=== PATIENT | male | born 1950 | race African-American/Black ===

== ENCOUNTER 2021-07-18 06:16 | Day surgery (SDC) | payer MEDICARE, OTHER ==
[2021-07-18] VITALS (10 sets, daily range): BP systolic 115–146; BP diastolic 86–101; PULSE 95–106; TEMP 99.1
[~2021-07-18] VITALS: Ht 182.9 cm; Wt 64.8 kg
[2021-07-18] MEDS ORDERED: LIORESAL20 MG PO (06:37)
[2021-07-18] MEDS ORDERED: ZESTRIL 20MG TA20 MG PO (06:37)
[2021-07-18] MEDS ORDERED: NORVASC 5MG5 MG/TAB PO (06:38)
[2021-07-18] MEDS ORDERED: D3-5050000 IU PO (06:38)
[2021-07-18] MEDS ORDERED: NEURONTIN300 MG/CAP PO (06:39)
[2021-07-18] MEDS ORDERED: XARELTO10 MG PO (06:39)
[2021-07-18] MEDS ORDERED: ZYRTEC 10MG10 MG PO (06:40)
[2021-07-18] MEDS ORDERED: HUMALOG 75/2100 U/ML SQ (06:40)
[2021-07-18] MEDS ORDERED: FLOMAX 0.40.4 MG/CAP PO (06:41)
[2021-07-18] MEDS ORDERED: PLAVIX 75MG TAB75 MG PO (06:41)
[2021-07-18] MEDS ORDERED: COZAAR 50MG50 MG/TAB PO (06:42)
[2021-07-18] MEDS ORDERED: COREG 6.256.25 MG/TA PO (06:42)
[2021-07-18] MEDS ORDERED: CRESTOR20 MG PO (06:43)
[2021-07-18 07:00] LABS: MEAN CELL VOLUME 77 fl (80.0-100.0); MEAN CORPUSCULAR HGB CONC 31 g/dl (33.0-37.0); MEAN PLATELET VOLUME 9.9 fl (7.4-10.4); PLATELET COUNT 245 K/mm3 (130-400); RED BLOOD COUNT 3.98 M/mm3 (4.20-5.60); REDCELL DISTRIBUTION WIDTH-CV 16.9 % (11.5-14.5)
[2021-07-18 07:01] LABS: HEMATOCRIT 30.7 % (42.0-52.0); HEMOGLOBIN 9.5 g/dl (13.5-18.0); MEAN CORPUSCULAR HEMOGLOBIN 24 pg (27.0-31.0)
[2021-07-18 07:13] LABS: INR 1.2 (0.8-3.0); PROTHROMBIN TIME 13.7 SECONDS (9.7-12.8)
[2021-07-18 07:15] LABS: PARTIAL THROMBOPLASTIN TIME 33.3 SECONDS (26.0-37.0)
[2021-07-18 07:51] LABS: CALCIUM 9.3 mg/dL (8.4-10.2); CREATININE, serum 1.29 mg/dL (0.72-1.25)
--- NOTE | 2021-07-18 08:19 | NUR ---
SEE MERGE DOCUMENTATION FOR MEDICATION ADMINISTRATION AND INTR/POST PROCEDURE SEDATION ASSESSMENTS.
--- NOTE | 2021-07-18 09:00 | NUR ---
Report from Re [facility]. Transferred from [facility] by bed. Alert and oriented, denies pain and needs at this time. 12 cc air to right Tabnd, good pulses and cap refill < 3 secs noted. VSS.
--- NOTE | 2021-07-18 11:45 | NUR ---
Ambulated to bathroom with help from daughter. 12 cc air released from right Tband and dressing applied. INT discontinued intact.
--- NOTE | 2021-07-18 12:00 | NUR ---
Discharge instructions given. Transferred to private car by chris
== END 2021-07-18 12:00 | disposition home or self-care (01) ==
LOC: COL.CAR 06:16
PROVIDERS: Internal Medicine Interventional Cardiology
DX: I25.10 Atherosclerotic heart disease of native coronary artery without angina pectoris (principal); R94.39 Abnormal result of other cardiovascular function study; I48.0 Paroxysmal atrial fibrillation; I13.0 Hypertensive heart and chronic kidney disease with heart failure and stage 1 through stage 4 chronic kidney disease, or unspecified chronic kidney disease; I50.20 Unspecified systolic (congestive) heart failure; I73.9 Peripheral vascular disease, unspecified; D75.A Glucose-6-phosphate dehydrogenase (G6PD) deficiency without anemia; E78.5 Hyperlipidemia, unspecified; Z20.822 Contact with and (suspected) exposure to COVID-19; Z79.899 Other long term (current) drug therapy; Z79.02 Long term (current) use of antithrombotics/antiplatelets; Z95.810 Presence of automatic (implantable) cardiac defibrillator
CPT/HCPCS: C1769; J1644; J2250; J3010